=== PATIENT | female | born 1985 | race Caucasian/White ===

== ENCOUNTER → 2019-05-12 | Outpatient (CLI) | payer OTHER ==
[2019-05-14 15:07] LABS: HPV 16 Negative (Negative); HPV 18 Negative (Negative); HPV OTHER HR TYPES Negative (Negative)
== END | disposition home or self-care (01) ==
LOC: LAB SHORT 17:45 → LAB 17:45
PROVIDERS: Obstetrics & Gynecology
DX: R87.810 Cervical high risk human papillomavirus (HPV) DNA test positive (principal)
CPT/HCPCS: 87624; 88142

== ENCOUNTER 2022-10-12 05:52 | Day surgery (SDC) | payer OTHER ==
[~2022-10-12] VITALS: Ht 174 cm; Wt 96.9 kg
--- NOTE | 2022-10-12 07:14 | NUR ---
Ambulatory in Day Surgery History, Chart, Medications and Allergies reviewed before start of procedure.Patient confirms NPO status and agrees with scheduled surgery. Patient reports completing Chlorhexadine shower X2 prior to admission to hospital.Surgical site prepped with 2% Chlorhexidine cloth wipe. NOSE RING IN PLACE, RESUSAL TO REMOVE FORM SIGNED. TAPE PLACED OVER PIERCING
--- NOTE | 2022-10-12 11:52 | NUR ---
ARRIVED FROM PACU VIA BED, AWAKE, DROWSY, DENIES ANY PAIN BUT C/O OF FEELING SOME "PRESSURE" ON LOWER ABD, DENIES ANY NAUSEA, ABD LAP INCISIONS X4, 2X2 GAUZE ON UMBILICAL AREA NOTED W/ SCANT SS DRAINAGE, KAY CATH W/ C/Y URINE, CONT. TO MONITOR FOR ANY CHANGES.
--- NOTE | 2022-10-12 12:43 | NUR ---
C/O LOWER ABD CRAMPING, ASSISTED OOB TO AMBULATE, TOLERATED WELL, KAY CATH DC'D, PT REPORTS FEELING "MUCH BETTER" AFTER KAY DC'D, MEDICATED FOR PAIN.
[2022-10-12 13:13] LABS: BASOPHILS ABSOLUTE AUTO 0.03 K/mm3 (0.00-0.23); BASOPHILS PERCENT AUTO 0 % (0-2); EOSINOPHILS PERCENT AUTO 0 % (0-6); Hematocrit 36.4 % (33.0-51.0); Hemoglobin 12.3 g/dL (11.5-16.0); IMMATURE GRAN ABSOLUTE AUTO 0.09 K/mm3 (0.00-0.10); IMMATURE GRAN PERCENT AUTO 1 % (0-1); LYMPHOCYTES ABSOLUTE AUTO 0.82 K/mm3 (0.84-5.20); LYMPHOCYTES PERCENT AUTO 6 % (21-46); MONOCYTES PERCENT AUTO 4 % (4-13); Mean Corpuscular HGB 30.7 pg (26.0-34.0); Mean Corpuscular HGB Conc 33.8 g/dL (31.5-36.5); Mean Corpuscular Volume 91 fL (80-100); Mean Platelet Volume 11.4 fL (9.1-12.4); NEUTROPHILS ABSOLUTE AUTO 13.34 K/mm3 (1.96-9.15); NEUTROPHILS PERCENT AUTO 90 % (41-73); Platelet Count 230 K/mm3 (150-400); RDW Coefficient Variation 12.7 % (11.7-14.2); RDW Standard Deviation 42.4 fL (35.1-46.3); Red Blood Cell Count 4.01 M/mm3 (3.80-5.20); White Blood Cell Count 14.88 K/mm3 (4.00-11.30)
[2022-10-12] MEDS ORDERED: Percocet 5-3251 EACH PO (15:03)
[2022-10-12] MEDS ORDERED: IBU800 MG PO (15:04)
--- NOTE | 2022-10-12 15:30 | NUR ---
DC PT HAS AMBULATED, VOIDED X3, REPORTS PAIN IS TOLERABLE ON PO PAIN MEDS, TOLERATED REG DIET WELL, DC' HOME, DC INSTRUCTIONS GIVEN, VERBALIZED UNDERSTANDING, PT REQUESTED TO HAVE DR. VIVEROS CALL HER TO SEE HOW HER SURGERY WENT, DR. VIVEROS'S OFFICE NOTIFIED.
== END 2022-10-12 15:34 | disposition home or self-care (01) ==
LOC: ORSCMMR 05:52 → ORD 07:30 → ORSCMMR 07:30 → SURS 11:16 → ORSCMMR 15:34
PROVIDERS: Obstetrics & Gynecology
PROC: 0UT9FZZ Resection of Uterus, Via Natural or Artificial Opening With Percutaneous Endoscopic Assistance (ICD-10-PCS; principal; 2022-10-12 07:30)
DX: N92.0 Excessive and frequent menstruation with regular cycle (principal); N94.6 Dysmenorrhea, unspecified; D25.9 Leiomyoma of uterus, unspecified; N80.03 Adenomyosis of the uterus
CPT/HCPCS: 36415; 85025; 88307; A9270; J0690; J1100; J1885; J2250; J2405; J2704; J3010; J7120

== ENCOUNTER → 2023-08-08 | Outpatient (CLI) | payer OTHER ==
[~2023-08-08] MED LIST: IBU800 MG PO; Percocet 5-3251 EACH PO
== END ==
LOC: LAB 11:32 → LAB SHORT 11:32
DX: R30.0 Dysuria (principal)
CPT/HCPCS: 87086